=== PATIENT | female | born 1965 | race Caucasian/White ===

== ENCOUNTER 2018-04-13 09:51 | Outpatient (CLI) | payer OTHER ==
--- NOTE | 2018-04-13 12:39 | ULT ---
RIGHT UPPER QUADRANT ULTRASOUND: 04/13/2018 HISTORY: Right upper quadrant abdominal pain. COMPARISON: None available. FINDINGS: The visualized portions of the pancreas, the visualized portions of the IVC, the liver, the gallbladd er, and the right kidney demonstrate a normal sonographic appearance. The renal medullary pyramids a re mildly prominent, but there is no overt hydronephrosis. The right kidney measures 10.5 cm in kristel th. The common duct measures 0.7 cm is diameter, which is mildly dilated, with respect to the patien t's age. No intrahepatic biliary ductal dilatation is seen. IMPRESSION: 1. Mild dilatation of the common duct, of uncertain etiology. No intrahepatic biliary ductal dilata tion is seen. 2. No gallbladder calculi are seen. POS: [facility]
== END 2018-04-13 09:52 | disposition home or self-care (01) ==
LOC: SCSULT 09:51
PROVIDERS: ATTEND Internal Medicine Gastroenterology
DX: R10.11 Right upper quadrant pain (principal); K20.0 Eosinophilic esophagitis; R13.10 Dysphagia, unspecified; K59.09 Other constipation; T78.40XA Allergy, unspecified, initial encounter; K83.8 Other specified diseases of biliary tract
CPT/HCPCS: 76705

== ENCOUNTER 2018-04-28 09:03 | Outpatient (CLI) | payer OTHER ==
[~2018-04-28 09:03] MED LIST: Gadobenate Dimeglumine 529 MG/1 ML (20ML VIAL) ONE
--- NOTE | 2018-04-28 14:31 | MRI ---
MRI ABDOMEN WITH AND WITHOUT CONTRAST: INDICATIONS: Abnormal ultrasound with right upper quadrant pain. COMPARISON: Right upper quadrant ultrasound performed on 04/13/2018. TECHNIQUE: Multiplanar, multisequence MR images were obtained of the abdomen utilizing emergency protocol, with and without contrast, and 12 mL of MultiHance was utilized for the examination. FINDINGS: As seen on the comparison ultrasound examination, is dilatation of the common bile duct, measuring up to 8.6 mm. No samuel intrahepatic biliary ductal dilatation is present. The visualized gallbladder is normal appearing without evidence of intraluminal stone. The common bile duct demonstrates no int raluminal filling defect or abnormal enhancement. The main pancreatic duct is of normal caliber. No abnormal mass is evident at the level of the ampulla. No abnormal mass is seen involving the pancre atic head. The common bile duct, just proximal to its insertion to the ampulla, is of normal caliber , measuring 4.7 mm. There are tiny cysts involving the right hepatic lobe, the largest measuring 6 mm, within segment 6 o f the right hepatic lobe. The pancreas, kidneys, adrenal glands, and spleen have a normal appearance. No definite bone marrow signal abnormality is evident. No abnormal enhancement is demonstrated. IMPRESSION: 1. Slight prominence of the mid to proximal common bile duct, measuring up to 8.6 mm, as seen on the previously performed right upper quadrant ultrasound. No intraluminal filling defect, such as stone or mass, is seen. There is no evidence of an ampullary or pancreatic head mass. Mild prominence of the common bile duct may be congenital in this patient, possibly reflective of a mild choledochal ty pe cyst. No samuel intrahepatic biliary ductal dilatation is noted. No gallstones are seen. 2. Incidental tiny right hepatic lobe cysts. POS: [facility]
== END 2018-04-28 09:04 | disposition home or self-care (01) ==
LOC: SCSMRI 09:03
PROVIDERS: ATTEND Internal Medicine Gastroenterology
DX: T78.40XA Allergy, unspecified, initial encounter (principal); K20.0 Eosinophilic esophagitis; E87.5 Hyperkalemia; K59.09 Other constipation; R10.11 Right upper quadrant pain; R93.5 Abnormal findings on diagnostic imaging of other abdominal regions, including retroperitoneum; R13.10 Dysphagia, unspecified
CPT/HCPCS: 74183; A9577